=== PATIENT | male | born 1960 | race Caucasian/White ===

== ENCOUNTER → 2018-08-29 | Day surgery (SDC) | payer OTHER | LOC: MSO 07:10 | DX: D12.8 Benign neoplasm of rectum (principal); K92.1 Melena; E11.9 Type 2 diabetes mellitus without complications; I10 Essential (primary) hypertension; Z79.84 Long term (current) use of oral hypoglycemic drugs | CPT/HCPCS: 00811; J2704; J3010; J7030 ==

== ENCOUNTER → 2023-09-28 | Outpatient (CLI) | payer BC | LOC: RAD 07:55 | DX: M25.512 Pain in left shoulder (principal) ==